=== PATIENT | female | born 1945 | race Caucasian/White ===

== ENCOUNTER 2018-04-24 15:37 | Inpatient (IN) | payer MEDICARE, OTHER ==
[~2018-04-24] VITALS: Ht 165.1 cm; Wt 93.7 kg
[~2018-04-24 15:37] MED LIST: CYMBALTA PO; HYDROCHLOROTH12.5 MG PO; LISINOPRIL PO; NORCO 10-325 T1 EACH PO; SIMVASTATIN PO; VERAPAMIL PO
--- OUTSIDE RECORDS SUMMARY | 2018-04-24 15:40 | XMS REPORT ---
Author Author [facility] Address Unknown Phone Unavailable Care Team Providers Care Lead Application Architect Name Role Phone Unavailable Unavailable Payers Payer Name Policy Type Policy Number Effective Date Expiration Date Problems This patient has no known problems. Allergies, Adverse Reactions, Alerts Allergy Name Allergy Type Status Severity Reaction(s) Onset Date Inactive Date Treating Clinician Comments temazepam DA Active U 2018-04-01 00:00:00 zolpidem DA Active MO 2018-04-01 00:00:00 tramadol DA Active MO 2018-04-01 00:00:00 verapamil DA Active SV 2018-04-01 00:00:00 zolpidem DA Active MO 2018-03-19 00:00:00 tramadol DA Active MO 2018-03-19 00:00:00 verapamil DA Active SV 2018-03-19 00:00:00 zolpidem DA Active MO 2018-03-18 00:00:00 No Known Allergies DA Active U 2018-03-18 00:00:00 Medications This patient has no known medications.
[2018-04-24 16:54] LABS: BASOPHILS # (AUTO) 0.1 (0.0-0.1); BASOPHILS % 0.9 % (0.0-1.0); EOSINOPHILS % 0.5 % (0.0-6.0); HEMATOCRIT 48.5 % (34.2-44.1); HEMOGLOBIN 16.4 g/dL (12.0-16.0); LYMPHOCYTES # (AUTO) 2.2 (1.0-3.2); LYMPHOCYTES % 26.2 % (18.0-39.1); MEAN CORPUSCULAR HEMOGLOBIN 30.3 pg (28-32); MEAN CORPUSCULAR HGB CONC 33.8 g/dL (31-35); MEAN CORPUSCULAR VOLUME 89.6 fL (81-99); MONOCYTES # (AUTO) 0.8 (0.2-0.8); MONOCYTES % 9.8 % (4.4-11.3); NEUTROPHILS # (AUTO) 5.3 (2.1-6.9); NEUTROPHILS % 62.4 % (38.7-80.0); PLATELET COUNT 352 x10e3/uL (140-360); RED BLOOD COUNT 5.41 x10e6/uL (3.6-5.1); RED CELL DISTRIBUTION WIDTH 13.7 % (11.7-14.4)
[2018-04-24 17:05] LABS: INR 0.94; PROTHROMBIN TIME 13.4 seconds (11.9-14.5)
[2018-04-24 17:06] LABS: PARTIAL THROMBOPLASTIN TIME 33.7 seconds (23.8-35.5)
[2018-04-24] MEDS ORDERED: SODIUM CHLORIDE 0.9% 1000ML 1,000 ML IV ONE (17:10)
[2018-04-24 17:13] LABS: ALBUMIN 4.3 g/dL (3.5-5.0); ALBUMIN/GLOBULIN RATIO 1.1 (0.8-2.0); ANION GAP 21.9 mmol/L (8-16); CALCIUM 10.8 mg/dL (8.4-10.2); CREATININE, SERUM 1.98 mg/dL (0.57-1.11)
[2018-04-24 17:21] LABS: POTASSIUM 2.9 mmol/L (3.5-5.1)
[2018-04-24] MEDS ORDERED: POTASSIUM CHLORIDE 20 MEQ TAB CR PO STA (17:21)
--- NOTE | 2018-04-24 17:23 | Diagnostic Imaging Report ---
Examination: CT head without contrast Clinical Indication: Horizontal diplopia; occipital headache. Technique: Transaxial noncontrast images from the skull base through the vertex were obtained. Sagittal and coronal reformatted images were done. Dose modulation, iterative reconstruction, and/or weight based adjustment of the mA/kV was utilized to reduce the radiation dose to as low as reasonably achievable. Comparison: None. Findings: Scalp: No abnormalities. Bones: Intact. No fractures. No blastic or lytic lesions. Brain sulci: Appropriate for patient's age. Ventricles: The ventricular size is out of proportion with respect to cerebral convexity sulci, concerning for a communicating type of hydrocephalus, such as normal pressure hydrocephalus. Extra-axial space: No abnormalities. Parenchyma: There are confluent areas of low-attenuation within subcortical and periventricular white matter, nonspecific, but could represent microvascular ischemic disease. No masses, hemorrhage, or acute or chronic cortical based vascular insults. Suprasellar region: No abnormalities. Craniocervical junction: The foramen magnum is patent. No Chiari one malformation. Incidental findings: Atherosclerotic calcification of the cavernous and supraclinoid internal carotid arteries. Impression: 1. No acute intracranial finding. 2. Mild chronic microvascular ischemic change. 3. Findings as described coud be related to normal pressure hydrocephalus. Signed by: Dr. Kandace Sarmiento M.D. on 04/24/2018 5:20 PM
[2018-04-24 17:33] LABS: THYROID STIMULATING HORMONE 1.402 uIU/mL (0.350-4.940)
[2018-04-24 18:32] LABS: COLOR,URINE YELLOW (YELLOW); LEUKOCYTE ESTERASE ,URINE 1+ (NEGATIVE)
[2018-04-24 18:33] LABS: BILIRUBIN,URINE NEGATIVE (NEGATIVE); KETONES,URINE NEGATIVE (NEGATIVE); NITRITE,URINE NEGATIVE (NEGATIVE); PROTEIN,URINE DIPSTICK NEGATIVE (NEGATIVE); URINE UROBILINOGEN 0.2 mg/dL (0.2 - 1)
[2018-04-24] MEDS ORDERED: ONDANSETRON HCL INJ 2 MG/ML VIAL IV PRN (18:45)
--- NOTE | 2018-04-24 19:12 | NUR ---
REPORT GIVEN TO DARCY GOEL POSTIE NURSE.
[2018-04-24] MEDS: SODIUM CHLORIDE 0.9% 1000ML 1,000 ML IV SCH (19:20)
[2018-04-24 19:25] LABS: CLARITY,URINE CLEAR (CLEAR)
[2018-04-24 19:26] LABS: BACTERIA,URINE FEW /HPF; EPITHELIAL CELLS,URINE MANY /LPF; RBC,URINE 0-5 /HPF (0-5)
[2018-04-24 19:29] LABS: TRANSITIONAL EPI CELLS,URINE FEW
[2018-04-24] MEDS ORDERED: OXYCONTIN10 MG PO (20:41)
[2018-04-24] MEDS ORDERED: gabapentin (20:44)
[2018-04-25] MEDS: SODIUM CHLORIDE 0.9% 1000ML 1,000 ML IV SCH ×3 (03:08→13:57)
[2018-04-25] MEDS: ACETAMINOPHEN 325 MG TAB PO PRN ×2 (04:10→13:50)
[2018-04-25] MEDS ORDERED: ACETAMINOPHEN 325 MG TAB ONE (04:12)
[2018-04-25 05:43] LABS: BASOPHILS # (AUTO) 0.1 (0.0-0.1); EOSINOPHILS # (AUTO) 0.1 (0.0-0.4); EOSINOPHILS % 1.4 % (0.0-6.0); HEMATOCRIT 39.3 % (34.2-44.1); HEMOGLOBIN 13.2 g/dL (12.0-16.0); LYMPHOCYTES # (AUTO) 2.8 (1.0-3.2); LYMPHOCYTES % 38.1 % (18.0-39.1); MEAN CORPUSCULAR HEMOGLOBIN 30.6 pg (28-32); MEAN CORPUSCULAR HGB CONC 33.6 g/dL (31-35); MEAN CORPUSCULAR VOLUME 91.2 fL (81-99); MONOCYTES # (AUTO) 0.8 (0.2-0.8); MONOCYTES % 10.5 % (4.4-11.3); NEUTROPHILS # (AUTO) 3.6 (2.1-6.9); NEUTROPHILS % 48.7 % (38.7-80.0); PLATELET COUNT 276 x10e3/uL (140-360); RED BLOOD COUNT 4.31 x10e6/uL (3.6-5.1); RED CELL DISTRIBUTION WIDTH 13.7 % (11.7-14.4)
[2018-04-25 05:57] LABS: ANION GAP 15.4 mmol/L (8-16); CREATININE, SERUM 1.05 mg/dL (0.57-1.11); POTASSIUM 3.4 mmol/L (3.5-5.1)
[2018-04-25] MEDS ORDERED: DEXTROSE 50% SYRINGE 50 ML IV PRN (08:00)
--- NOTE | 2018-04-25 10:38 | Diagnostic Imaging Report ---
Examination: MRI BRAIN WITHOUT CONTRAST History: New onset horizontal diplopia. Comparison studies: None Technique: Sagittal T2; axial DWI, FLAIR, GRE or SWI, T1, Coronal FLAIR. Intravenous contrast: None Findings: Scalp: No abnormal signal. No masses. Bone marrow: Normal in signal intensity. Brain volume: Adequate for age. No volume loss. Ventricles: The ventricular size is out of proportion with respect to cerebral convexity sulci, concerning for a communicating type of hydrocephalus, such as normal pressure hydrocephalus. Extra-axial spaces: No abnormalities. Parenchyma: There are confluent areas of low-attenuation within subcortical and periventricular white matter, nonspecific, but could represent microvascular ischemic disease. No masses, hemorrhage, or acute vascular insults. Suprasellar and sellar region: No abnormalities. Craniocervical junction: No abnormalities. The foramen magnum is patent. No Chiari malformations. Vessels: Normal flow-voids in the arteries and sinuses. IMPRESSION: 1. No acute intracranial finding. 2. Mild chronic microvascular ischemic change. 3. Findings as described coud be related to normal pressure hydrocephalus. Signed by: Dr. Kandace Sarmiento M.D. on 04/25/2018 10:34 AM
[2018-04-25] MEDS: ASPIRIN 81 MG ENTERIC COATED PO SCH (10:41)
[2018-04-25] MEDS: POTASSIUM CHLORIDE 10MEQ EA PO SCH (10:41)
[2018-04-25] MEDS: INSULIN REGULAR, HUMAN 100 UNIT/1 ML 3ML VIAL SQ SCH ×3 (12:38→21:00)
[2018-04-25] MEDS ORDERED: POTASSIUM CHLORIDE 20 MEQ TAB CR PO STA (13:25)
[2018-04-25] MEDS ORDERED: CEFEPIME HCL 1 GM VIAL IV SCH (13:30)
[2018-04-25] MEDS: CEFEPIME 1GM/NS 0.9% 50 ML 50 ML IV SCH (13:57)
--- NOTE | 2018-04-25 14:54 | NUR ---
Patient admitted to unit from ER. Patient arrived via stretcher. Patient is AAOx3. Patient c/o having double vision for the last month. Fell a few months ago and hit her head. No c/o head pain at this time. No c/o double vision. Pupils equal and reactive to light. Left AC IV in place. Right sided mastectomy with limb alert. Lung fragoso clear to auscultation. Bowel sounds present x4. LBM noted yesterday. No edema noted. Patient ambulates with a rolling walker that is at bedside.
[2018-04-25 15:42] VITALS: BP 135/71
[2018-04-25 15:45] VITALS: BP 135/71
--- NOTE | 2018-04-25 16:00 | History and Physical ---
PRIMARY CARE SYSTEM: [facility]. HOSPITAL PHYSICIAN: Dr. Lamberto Fonseca. HISTORY: Ms. Collins is a pleasant 72-year-old female with double vision. Patient with acute onset. Patient was reading through images on her cellphone when this occurred. Patient subsequently became very frightened. She tried to coordinate messages on her phone to ask for help, and she could not operate the cellphone accordingly. This started at about midnight, the day prior to admission. It lasted until 2 p.m. the next day. Subsequently, the patient was finally able to call for help through her son, and she was brought to the emergency room here in [facility]. Brain CT was done demonstrating no acute changes. At this point, she is recommended for more evaluation. Notably, there was no subdural hemorrhage that was present. On March 18, 2018, the patient presented to outside hospital with a fall after taking out the trash where she hit her head. She feels her legs gave out and she had syncope at that time. CT of the head demonstrated a very thin acute subdural hematoma. Subsequent imaging did not show worsening and actually showed improvement; and therefore, patient was finally out for discharge after performing rehab hospitalization there that was complicated by a transient urinary tract infection. There was an additional finding of severe L4-L5 spinal stenosis and grade 1 degenerative spondylolisthesis which contributed to her chronic gait disorder, and patient was having follow up on that for consideration of corrective surgery there. She still has not had that surgery yet because the surgeon wanted her to get better first. Recently, the patient has stated that she has mild imbalance of the gait. No bowel incontinence. No urinary incontinence. She was not having an impaired vision when she recovered from this subdural hematoma. PAST MEDICAL HISTORY: Arthritis; diabetes; hypertension; subdural hemorrhage, March 2018, status post conservative treatment. She had an echocardiogram performed at outside hospital on March 29, 2018, demonstrating LVEF of 50%, no other large structure abnormalities. MEDICATIONS: Medication list reviewed per electronic record. ALLERGIES: PREGABALIN, ZOLPIDEM STATED. SOCIAL HISTORY: No smoking. No drinking. No drugs. Patient lives at home. FAMILY HISTORY: Noncontributory to this condition and this new syndrome. REVIEW OF SYSTEMS GENERAL: No weight changes. OPHTHALMOLOGIC: There is no history of any corneal or conjunctival injuries recently. ENT: No dry mouth. ENDOCRINE: No history of known thyroid disorder. PULMONARY: No asthma. CARDIAC: No heart attacks. GI: No chronic constipation. : There is no blood in urine. DERMATOLOGIC: No rash. NEUROLOGIC: No seizures that are proved in the past. OBJECTIVE VITAL SIGNS: Afebrile. Vital signs noted per electronic record. GENERAL: In no acute distress, alert and calm. HEENT: Normocephalic, atraumatic. NECK: Supple. Throat midline. LUNGS: Bilateral air entry, mostly clear. CARDIOVASCULAR: S1, S2. No murmurs, rubs, or gallops. ABDOMEN: Soft, nontender. EXTREMITIES: No clubbing, no cyanosis. No edema. INTEGUMENT: No rash or purpura. LABS: White count 7, hematocrit 39, platelets 276, potassium 3.4, BUN 12, creatinine 1.0. Calcium 9.0. Globulin is 4.0 and total protein 8.3. Urinalysis finally done with 6 to 10 white blood cells. IMPRESSION AND PLAN 1. Diplopia, reported. 2. Recent subdural hematoma, March 2018, status post resorption on conservative therapy. 3. Gait disturbance/imbalance, chronic. 4. Known L4-L5 grade 1 anterolisthesis with severe foraminal stenosis on the left and moderate right foraminal stenosis. 5. Chronic neuropathy. 6. Diabetes. 7. Arthritis. 8. Hypertension. 9. History of fibromyalgia. 10. Expansile cerebral ventriculitis, rule out normal pressure hydrocephalus. 11. Urinary tract infection. 12. Hypokalemia. Neurology has been consulted. We will get an MRI of the brain. They can consider need for lumbar puncture based on their physical exam. Replete potassium. Treat with empiric antibiotics. Control other clinical conditions, and we will follow along closely. Thank you very much for allowing us the chance to participate in the care of your patient from [facility]. Job#: [id number] DAWSON
[2018-04-25 17:34] VITALS: BP 98/64
[2018-04-25] MEDS ORDERED: TRAMADOL HCL 50 MG TAB PO PRN (18:45)
[2018-04-25] MEDS: GABAPENTIN 100 MG CAP PO SCH (18:50)
[2018-04-25 20:00] VITALS: BP 130/72
[2018-04-25 21:07] VITALS: BP 130/72
[2018-04-26] VITALS (7 sets, daily range): BP systolic 123–152; BP diastolic 60–82
--- NOTE | 2018-04-26 00:10 | NUR ---
ASSESSMENT DONE.NO REP.DISTRESS.BED LOCKED AND IN LOWEST POSITION.BED ALARM ON.AMBULATES WITH ROLLER WALKER.PAIN MEDICATION GIVEN.INSTRUCTED THE PT TO CALL NEEDED.
[2018-04-26] MEDS: CEFEPIME 1GM/NS 0.9% 50 ML 50 ML IV SCH (02:01)
[2018-04-26] MEDS: SODIUM CHLORIDE 0.9% 1000ML 1,000 ML IV SCH (02:41)
[2018-04-26] MEDS: ACETAMINOPHEN 325 MG TAB PO PRN (02:48)
[2018-04-26 05:58] LABS: BASOPHILS # (AUTO) 0.1 (0.0-0.1); BASOPHILS % 1.5 % (0.0-1.0); EOSINOPHILS # (AUTO) 0.2 (0.0-0.4); EOSINOPHILS % 2.7 % (0.0-6.0); HEMATOCRIT 38.2 % (34.2-44.1); HEMOGLOBIN 12.6 g/dL (12.0-16.0); LYMPHOCYTES # (AUTO) 2.7 (1.0-3.2); LYMPHOCYTES % 49.5 % (18.0-39.1); MEAN CORPUSCULAR HEMOGLOBIN 29.9 pg (28-32); MEAN CORPUSCULAR VOLUME 90.7 fL (81-99); MONOCYTES # (AUTO) 0.5 (0.2-0.8); MONOCYTES % 8.2 % (4.4-11.3); NEUTROPHILS # (AUTO) 2.1 (2.1-6.9); NEUTROPHILS % 38.1 % (38.7-80.0); PLATELET COUNT 240 x10e3/uL (140-360); RED BLOOD COUNT 4.21 x10e6/uL (3.6-5.1); RED CELL DISTRIBUTION WIDTH 13.8 % (11.7-14.4)
[2018-04-26 06:16] LABS: ALANINE AMINOTRANSFERASE 15 IU/L (0-55); ALBUMIN 3.2 g/dL (3.5-5.0); ALBUMIN/GLOBULIN RATIO 1.1 (0.8-2.0); ALKALINE PHOSPHATASE 69 IU/L (40-150); BLOOD UREA NITROGEN 8 mg/dL (7-26); BUN/CREATININE RATIO 10 (6-25); CARBON DIOXIDE 23 mmol/L (22-29); CHLORIDE 112 mmol/L (98-107); CREATININE, SERUM 0.82 mg/dL (0.57-1.11); EST GLOMERULAR FILTRATION RATE > 60 ML/MIN (60-); GLUCOSE 87 mg/dL (74-118); SODIUM 143 mmol/L (136-145)
--- NOTE | 2018-04-26 06:50 | NUR ---
REPORT GIVEN TO THE ONCOMING RN.WALKING ROUNDS DONE.STABLE CONDITION.
[2018-04-26] MEDS: INSULIN REGULAR, HUMAN 100 UNIT/1 ML 3ML VIAL SQ SCH (07:30)
[2018-04-26] MEDS: POTASSIUM CHLORIDE 10MEQ EA PO SCH (09:56)
[2018-04-26] MEDS: ASPIRIN 81 MG ENTERIC COATED PO SCH (09:56)
[2018-04-26] MEDS: GABAPENTIN 100 MG CAP PO SCH (09:57)
[2018-04-26] MEDS ORDERED: POTASSIUM CHLORIDE 20 MEQ TAB CR PO NR (10:30)
[2018-04-26] MEDS: INSULIN LISPRO 100 UNIT/1 ML 3ML VIAL SQ SCH ×3 (11:30→20:38)
[2018-04-26 13:07] LABS: CHOL/HDL RATIO 4.4 (3.0-3.6)
[2018-04-26] MEDS: GABAPENTIN 300 MG CAP PO SCH ×2 (14:01→20:41)
[2018-04-26] MEDS ORDERED: POTASSIUM CHLORIDE 20 MEQ TAB CR PO SCH (14:15)
[2018-04-26] MEDS ORDERED: GABAPENTIN 100 MG CAP PO SCH (15:00)
--- NOTE | 2018-04-26 15:52 | NUR ---
Nutrition Screen Note RD Recommendation for Physician: -Continue ADA diet as ordered Plan of Care: RD following, monitoring for tolerance and adequacy Nutrition reason for involvement: Nutrition Risk Trigger MST Primary Diagnose(s): 1. Diplopia, reported. 2. Recent subdural hematoma, March 2018, status post resorption on conservative therapy. 3. Gait disturbance/imbalance, chronic. 4. Known L4-L5 grade 1 anterolisthesis with severe foraminal stenosis on the left and moderate right foraminal stenosis. PMH: Arthritis; diabetes; hypertension; subdural hemorrhage Ht: 65in Wt: 209lb BMI: 34.8kg/m2 IBW: 125lb RD Assessment: (04/26) Chart reviewed. Labs and meds reviewed. 72 yo F, who is admitted for diplopia. Visited pt in the room. Pt reports good appetite with ~75% meal intake today. No GI complains noted. LBM 04/25, loose stool possibly due to meds. Pt forgets to bring her denture; chopped diet has been entered. Pt denies any swallowing difficulty. Pt reports of 10lbs weight loss in a month, ~4.5% weight loss in 1 month is not significant. No physical sign of malnutrition with BMI 34.8g/m2. Will continue to monitor and follow. Current Diet: ADA diet Malnutrition Evaluation (04/26/2018) The patient does not meet criteria for a specified degree of malnutrition at this time. Will re-evaluate at follow-up as appropriate. Energy intake: <75% of estimated energy requirements for >1 month Weight loss: 4.5% weight loss in 1 month, insignificant. Diet Education Needs Assessment: Diet education not indicated. Nutrition Care Level: low Signed: Deb Miller, MS, RD, LD
[2018-04-26] MEDS: ENOXAPARIN SOD INJ 40 MG/0.4 ML SYR SC SCH (16:21)
[2018-04-26] MEDS: FAMOTIDINE 20 MG TAB PO SCH (16:21)
--- NOTE | 2018-04-26 16:40 | NUR ---
report given to receiving nurse, pt transferred to rm [id number], left in stable condition with all belongings
--- NOTE | 2018-04-26 19:15 | NUR ---
Patient visited in room during nursing rounds. Patient alert and oriented x3. No distress or discomfort noted. Patient ambulates with rolling walker prn in room. Right limb alert due to history of right breast mastectomy. Will monitor patient closely.
--- NOTE | 2018-04-26 19:29 | NUR ---
PT RECEIVED FROM MED SURG 1, AOX3, NO DISTRESS NOTED. ASSISTED TO BR NEEDED.ORIENTED TO ROOM AND CALL LIGHT WITHIN REACH
--- NOTE | 2018-04-26 20:08 | Consultation ---
DATE OF CONSULTATION: April 26, 2018 NEUROLOGY CONSULT NOTE HISTORY OF PRESENT ILLNESS: Ms. Collins is a 72-year-old right-hand dominant woman with past medical history significant for hypertension, hyperlipidemia, and diabetes mellitus, admitted to [facility] on April 24, 2018 with double vision. At approximately 0500 on the morning of admission, the patient experienced a sudden onset of horizontal binocular diplopia. In addition to double vision, the patient endorses dysarthria, poor balance and gait impairment, and dizziness. However, the symptoms have been present for the past 6 to 7 weeks. Ms. Collins does not report facial weakness, hemiparesis, hemihypesthesia or confusion. She does not endorse urinary incontinence. Concern regarding the double vision, Ms. Collins proceeded to the Emergency Center at [facility] for further evaluation of these symptoms. While in the Emergency Center, the double vision began to improve. At present, Ms. Collins reports the diplopia is significantly improved/resolved. Ms. Collins was admitted to [facility] for further evaluation and treatment of the above-described symptoms. The patient reports being hospitalized at [facility] for approximately 1 month in March 2018. The reason for hospitalization is unknown. However, Ms. Collins does report dysarthria, poor balance and gait impairment, and dizziness, which is further described as a vertiginous sensation since her hospitalization in March. The patient reports possible seizure activity during her hospitalization in March as well. REVIEW OF SYSTEMS: Nausea, vomiting, diarrhea, horizontal binocular diplopia, dysarthria, impairment of balance and gait, and dizziness which is further described as a vertiginous sensation. Otherwise, the 12-point review of systems is negative. PAST MEDICAL HISTORY: Hypertension, hyperlipidemia, diabetes mellitus, arthritis, fibromyalgia, bilateral breast cancer, diabetic polyneuropathy, diverticulitis. PAST SURGICAL HISTORY: Left mastectomy, right TRAM flap, partial colectomy/appendectomy, right knee replacement. PAST HOSPITALIZATIONS: Surgeries/procedures as listed, childbirth x3, chest pain, "heart problems", status post fall/syncope in March 2018. FAMILY MEDICAL HISTORY: Patient's paternal and maternal grandparents are . Their medical histories are unknown. The patient's father is from coronary artery disease with a myocardial infarction. Patient's mother is . Her only known medical history was hypertension. Ms. Collins had 3 brothers and 3 sisters. The eldest brother is alive and healthy. The middle brother is from a ruptured cerebral artery aneurysm. The youngest brother is alive, but has coronary artery disease with prior myocardial infarction. The patient's eldest sister is from cervical cancer. The second sister is from coronary artery disease with a myocardial infarction. The third sister is alive, but has coronary artery disease with prior myocardial infarction. Ms. Collins has 3 children, all sons, all of whom are living. The eldest child has coronary artery disease with prior myocardial infarction. The younger 2 children are healthy. SOCIAL HISTORY: Ms. Collins is . She is retired. She reports a remote history of tobacco use, but quit smoking cigarettes 40 years ago. The patient endorses occasional alcohol use. She does not report current or prior recreational drug use. HOME MEDICATIONS: Reviewed. Please see the list of home medications available in the electronic medical record. ALLERGIES: GWEN MISHRA. NO KNOWN FOOD ALLERGIES. NO KNOWN ALLERGIES TO LATEX. NO KNOWN ALLERGIES TO IODINE OR OTHER CONTRAST MATERIALS. PHYSICAL EXAMINATION VITAL SIGNS: Height 65 inches, weight 209 pounds. BMI of 34.8 kg per meter squared. Blood pressure 136/82 mmHg. Pulse 62 beats per minute. Respiratory rate 16 breaths per minute. Oxygen saturation 97% on room air. GENERAL: The patient is awake and alert, does not appear distressed. Obese. HEENT: Normocephalic, atraumatic. Pupils are equal, round, and reactive to light. Moist mucous membranes. NECK: Supple. No appreciable thyromegaly. No appreciable carotid bruits. CARDIOVASCULAR: S1, S2, regular rate and rhythm. A low-grade systolic ejection murmur is present. RESPIRATORY: Clear to auscultation bilaterally. No wheezes, rhonchi, or rales. EXTREMITIES: The skin is warm and dry. No clubbing, cyanosis, or edema. The posterior tibial and dorsalis pedis pulses are 1+ and symmetric. SKIN: No rashes or lesions. NEUROLOGIC Memory/Attention: The patient is awake and alert, oriented to person, place, time, and situation. Cranial Nerves: Cranial nerve I--not tested. Cranial nerve II, III, IV, and --Pupils are equal and round, react briskly to light (from 4 mm to 2 mm). Mild esotropia of the left eye at rest. There is a very mild partial left cranial nerve palsy. No nystagmus. Cranial nerve V--sensation to light touch and pinprick is intact in the bilateral V1 through V3 distributions. Strength of the temporalis and masseter muscles is within normal limits. Cranial nerve VIII--the face is symmetric as are all facial movements. Strength is within normal limits. Cranial nerve VIII--hearing is intact to finger rub bilaterally. Cranial nerve IX, X--the soft palate elevates equally and symmetrically. Cranial nerve XI--normal strength of the bilateral sternocleidomastoid and trapezius muscles. Cranial nerve XII--the tongue protrudes midline and moves symmetrically from side to side. Strength: Bulk is normal. Strength is 5/5 in the bilateral deltoids, biceps, triceps, wrist flexors and extensors, finger flexors and extensors, intrinsic hand muscles, hip flexors, knee flexors and extensors, ankle dorsiflexion and plantar flexion, and intrinsic foot muscles. Tone is normal. DTRs: Deep tendon reflexes are 2+ and symmetric at the triceps, biceps, and brachioradialis. Deep tendon reflexes are 1+ of the left patella and absent at the right patella. Deep tendon reflexes are absent and symmetric at the Achilles. Plantar responses are flexor bilaterally. Sensation: Sensation is intact to light touch and pinprick in both arms and both legs. Cerebellar: Nxteoa-pjmp-zuugoc and heel-nino movements are intact without dysmetria or other impairment. Gait: Deferred. Speech: Spontaneous speech is mildly dysarthric without aphasia. Repetition is intact. Involuntary Movements: None. Pronator Drift: None. LABORATORY DATA: The most recent comprehensive metabolic panel is significant for a low total protein 6.0 and a low albumin of 3.2. The CBC with differential and platelets reveals a white blood cell count of 5.48 with 38.1% neutrophils, 49.5% lymphocytes, 8.2% monocytes, 2.7% eosinophils, and 1.5% basophils. The coagulation profile is within normal limits. A urinalysis was significant for trace blood, 1+ leukocyte esterase, 6 to 10 white blood cells, and 6 to 10 hyaline casts. DIAGNOSTIC STUDIES 1. CT of the brain without contrast 04/24/2018: On my review, there is no evidence of recent large territorial ischemia, hemorrhage, mass, or mass effect. Cerebral volume is appropriate for age. The ventricular size is out of proportion with respect to the degree of cerebral atrophy. There are findings compatible with mild to moderate chronic small vessel ischemic disease. 2. Electrocardiogram 04/24/2018: Sinus tachycardia at 120 beats per minute. Left axis deviation. 3. Echocardiogram 04/25/2018: Concentric left ventricular hypertrophy. Trace mitral and tricuspid regurgitation. 4. Bilateral carotid artery ultrasound with Doppler 04/25/2018: There is atherosclerosis without a hemodynamically significant stenosis at unknown areas in the bilateral carotid artery systems. Flow is antegrade in the bilateral vertebral arteries. 5. MRI of the brain without contrast 04/25/2018: On my review, there is no evidence of recent large territorial ischemia, hemorrhage, mass, or mass effect. Cerebral volumes are appropriate for age. Once again, the size of the ventricles is out of proportion to the degree of cerebral atrophy. There are confluent areas of T2/FLAIR hyperintense foci in the supratentorial deep white matter compatible with moderate chronic small vessel ischemic disease. ASSESSMENT AND PLAN: Ms. Collins is a 72-year-old woman with multiple vascular risk factors admitted to [facility] with acute onset binocular horizontal diplopia, which has significantly improved during her hospitalization. The patient's neurological examination is significant for esotropia of the left eye at rest, a very mild partial left cranial nerve palsy, and mild dysarthria without aphasia. The patient's laboratory data and other diagnostic studies have been reviewed and are documented above. In my opinion, the patient's binocular horizontal diplopia is due to a cranial nerve palsy, probably the left cranial nerve. The etiology of the cranial nerve palsy is likely ischemic (i.e. a stroke). RECOMMENDATIONS 1. A lipid panel and hemoglobin A1c will be ordered to complete a stroke evaluation. 2. The results of all pending studies will be reviewed once available. 3. Aspirin 325 mg by mouth daily will be prescribed for stroke prophylaxis. 4. The patient's blood pressure are currently at goal. Continue treatment with the current medications. Monitor vital signs per unit protocol. 5. The patient's goal total cholesterol less than 200 with a LDL of less than 70. Follow up the results of the patient's lipid panel. In the interim, the patient's home medication may be continued. 6. The patient's goal hemoglobin A1c is less than 7.0. Follow up the results of the hemoglobin A1c. Continue treatment with sliding scale insulin for correction. 7. Speech and physical therapy consultations will be ordered. 8. GI prophylaxis with Pepcid 20 mg by mouth twice daily with meals. 9. DVT prophylaxis with Lovenox 40 mg subcutaneously daily. 10. Defer treatment of the remaining medical comorbidities to the primary and other services following the patient. Thank you for this consultation. I will continue to follow the patient while she remains in the hospital. Time spent: 70 minutes. Job#: [id number] CQ [id number]
[2018-04-27] VITALS: BP 150/73
--- NOTE | 2018-04-27 07:20 | NUR ---
RECD PT IN BED SLEEPING NO S/S DISCOMFORT
[2018-04-27] MEDS: INSULIN LISPRO 100 UNIT/1 ML 3ML VIAL SQ SCH ×3 (07:30→16:30)
[2018-04-27 08:00] VITALS: BP 141/73
[2018-04-27] MEDS ORDERED: ASPIRIN 81 MG ENTERIC COATED PO SCH (09:00)
[2018-04-27] MEDS ORDERED: ASPIRIN 325 MG TAB EC PO SCH (09:00)
[2018-04-27] MEDS: FAMOTIDINE 20 MG TAB PO SCH ×2 (09:01→16:30)
[2018-04-27] MEDS: GABAPENTIN 300 MG CAP PO SCH ×2 (09:02→15:00)
[2018-04-27] MEDS: POTASSIUM CHLORIDE 10MEQ EA PO SCH (09:02)
[2018-04-27 12:00] VITALS: BP 158/82
--- NOTE | 2018-04-27 13:27 | Discharge Summary ---
PRIMARY CARE DOCTOR: Dr. Piper Blair with [facility]. FINAL DIAGNOSIS: Horizontal diplopia likely due to cerebral ischemia. SECONDARY DIAGNOSES 1. Recent subdural hematoma, resolved. 2. Diabetes. 3. Hypertension. 4. Dyslipidemia. CONSULTANTS: Dr. Velez, neurology. PROCEDURES/STUDIES PERFORMED 1. MRI of the brain. 2. Carotid Doppler. 3. Head computerized tomography. 4. Echocardiogram. HISTORY: Per H and P. HOSPITAL COURSE: The diplopia resolved on its own. The patient was evaluated by neurology, who feels that her diplopia is likely due to cerebral ischemia due to a left cranial nerve palsy. Since the patient was not on aspirin prior to coming here, the patient was started on 325 mg daily. Echocardiogram and carotid are okay. Since her LDL is still 86 and triglycerides are 155, Zocor was increased to 20 mg instead of 10 mg. The patient was evaluated by physical therapy. No inpatient rehab indicated at this time. The patient will be going home today. Her hemoglobin A1c is actually 5.4%. She is doing well. The patient was seen and examined today. It took 32 minutes total to discharge this patient. CONDITION ON DISCHARGE: Improved. DISCHARGE MEDICATIONS: Please see medication reconciliation form. BRENTON DONAHUE M.D. Job#: [id number] RI cc:PIPER BLAIR MD
[2018-04-27] MEDS ORDERED: ASPIRIN325 MG PO (14:25)
[2018-04-27] MEDS ORDERED: ZOCOR20 MG PO (14:25)
[2018-04-27 16:00] VITALS: BP 134/82
--- NOTE | 2018-04-27 16:20 | NUR ---
PT DC'ING HOME TODAY. IMM LETTER EXPLAINED AND PT VERBALIZED UNDERSTANDING. IMM LETTER SIGNED. COPY TO PT AND COPY TO CHART.
[2018-04-27] MEDS: ENOXAPARIN SOD INJ 40 MG/0.4 ML SYR SC SCH (17:00)
--- NOTE | 2018-04-27 18:21 | NUR ---
PT IV DCD WITHOUT REDNESS OR SWELLING,DISCHARGED AWAITING RIDE
== END 2018-04-27 18:38 | disposition home or self-care (01) | DRG 69 ==
LOC: ER 15:37 → ERHOLD 18:48 → MED/SURG 04-25 14:55 → MED/SURG3 04-26 16:38
PROVIDERS: ADMIT Internal Medicine; ATTEND Internal Medicine
DX: I67.82 Cerebral ischemia (principal); N17.9 Acute kidney failure, unspecified; N39.0 Urinary tract infection, site not specified; H49.22 Sixth [abducent] nerve palsy, left eye; H53.2 Diplopia; E87.6 Hypokalemia; I10 Essential (primary) hypertension; E11.42 Type 2 diabetes mellitus with diabetic polyneuropathy; E78.5 Hyperlipidemia, unspecified
CPT/HCPCS: 36415; 70450; 70551; 80048; 80053; 80061; 81001; 82948; 83036; 84443; 85025; 85610; 85730; 92523; 93005; 93306; 93880; 99284; J0692; J1650; J7030